=== PATIENT | female | born 1995 | race African-American/Black ===

== ENCOUNTER 2021-09-04 06:35 | Emergency (ER) | payer SELFPAY ==
[2021-09-04] MEDS ORDERED: Acetaminophen 500 MG TAB ONE (07:20)
[2021-09-04 16:42] LABS: SARS-CoV-2 PCR by NAA DETECTED (NotDetected)
== END 2021-09-04 08:15 | disposition home or self-care (01) ==
LOC: NAV ERS 06:35
DX: U07.1 COVID-19 (principal)
CPT/HCPCS: 87804; 99283; U0003; U0005